=== PATIENT | female | born 2000 | race African-American/Black ===

== ENCOUNTER 2025-02-10 15:15 | Emergency (ER) | payer SELFPAY ==
--- NOTE | 2025-02-10 15:15 | RT.EKG_ITS ---
APPROVED REPORT Exam: Resting ECG Reason for Exam: chest pain Patient Location: E HR:72 bpm ECG Measurements Heart Rate 72 AXIS LA 183 P 35 QRSd 75 QRS 56 QT 370 T 19 QTc 407 Conclusion Sinus rhythm...normal P axis, V-rate 60- 99 No Occlusion OK
--- NOTE | 2025-02-10 15:16 | W.ED.GENAD ---
Discharge Plan Disposition Patient Disposition: Home Discharge Details Clinical Impression: Chest pain, unspecified, Microcytic anemia Primary Care Provider: Veronica,Local ED Provider: Raymundo Fried Home Meds and New Rx's Prescriptions: No Action No Known Home Meds Discharge Instructions Additional Instructions: You were seen in the emergency department for your chest pain. Your blood work shows no sign of any damage to your heart. The preliminary read of your chest x-ray in the emergency department showed no dangerous processes. You will receive a callback if there is an over read by radiology. Please return to the emergency department if you develop shortness of breath or any worsening chest pain. Otherwise please follow-up with your primary care provider when you return home. You are found to be mildly anemic. Your hemoglobin is 10.3 g/dL. Your mean corpuscular volume is 71. For your pain please take medications as follows: 1. Take acetaminophen (Tylenol), 1,000 mg (two 500 mg tabs) every 6 hours Stand Alone Forms: Portal Information Discharge Data Discharge Date/Time-TO BE ENTERED AT DEPARTURE: 02/10/25 16:50 HPI General Date/Time Provider Initiated Documentation: 02/10/25 15:16. HPI Narrative: MDM This is an overall quite well-appearing normothermic and not tachycardic 24-year-old female with chest pain and reassuring ECG for which patient will undergo troponin testing to assess for ACS. I considered aortic dissection however patient has had no tearing quality to suggest aortic dissection. No nausea nor vomiting to suggest increased risk for esophageal rupture. No abdominal pain to suggest acute cholecystitis however will obtain LFTs. Will obtain lipase to assess for pancreatitis. No trauma to chest to suggest increased risk for pneumothorax. Patient not hypotensive nor tachycardic make my suspicion low for cardiac tamponade. No reported rash to chest to suggest zoster. No cough no shortness of breath to suggest pneumonia. Patient was not complaining of shortness of breath and is not tachycardic. She is PERC negative and as result I did not obtain a dimer. HEART SCORE Chest pain Diagnostic Protocol: [-History/Physical/Gestalt: Slightly Suspicious (0)] [-EKG: Normal and/or unchanged from prior EKG (0)] [-AGE: less than 45 (0)] [- RISK FACTORS: 1 - 2 risk factors (+1)] [-TROPONIN: <= normal limit (0)] - TOTAL SCORE: 1 - Risk Factors: DM, current or recent smoker, HTN, HLD, family hx of CAD, obesity - INTERPRETATION: With a total score of 3 or less, risk of major cardiac event within six weeks 1.7%, likely lower with two negative troponins. [I explained to the patient that the risk of subsequent major cardiac event within 1 month is not 0, however risk predicted to be less than 2%. Patient verbalized understanding, accepts this risk and shared and the decision for discharge with PCP follow-up for further evaluation and management. They understand to return to the ED immediately with any worsening symptoms, new symptoms or other concerns.] 4:30 PM Troponin is undetectable and initial given duration of time since symptoms began patient does not requires a repeat troponin. Reassuring normal lipase. CBC with microcytic anemia. No thrombocytopenia. No leukocytosis. Negative hCG. Comprehensive metabolic panel with normal renal function. No acute LFT abnormalities. No acute electrolyte abnormalities. No prior for comparison. Patient I discussed her anemia. She is not currently on her menstrual period. We discussed that when she returns home she should follow-up with her primary care provider. 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 We also discussed that she should return to the ED if her chest pain worsens or change. She understood her return indications and was discharged with empiric trial of expectant outpatient management. Diagnostic interpretations performed by me: Per my independent interpretation chest x-ray shows: No acute cardiopulmonary process Per my independent interpretation EKG shows: Narrow complex normal sinus rhythm at a rate of 72. Normal axis. Intervals within normal limits. No ST segment abnormalities. No T wave versions. No prior for comparison. No acute injury pattern. HPI This is a patient with a history of asthma presenting with chest pain. The patient reports experiencing intermittent chest pain for over a week, which has become constant over the past 3 to 4 days. The pain is localized to the upper chest and occasionally radiates to another area. The pain is described as constant and worsens with physical activity, such as moving around at work. The patient has not identified any alleviating factors. There is no associated shortness of breath, vomiting, abdominal pain, recent falls, or trauma. The patient has no history of diabetes, hypertension, hypercholesterolemia, syncope, or thromboembolic events. She is not on any form of contraception and reports no unusual rashes. She has attempted to use her asthma inhaler and breathing treatments to alleviate the pain, but these have been ineffective. The patient has no prior history of similar chest pain. 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 She also reports that her older sister has been missing for several months. She reports that this is a source of stress. Exam General: Well-appearing in no acute distress speaking in complete sentences. Head: Normocephalic, atraumatic. Eye: Extraocular eye movements intact. No conjunctival injection. No scleral icterus. Ear, nose, mouth, throat: Grossly normal inspection. Normal voice, handling secretions normally. Neck: Trachea midline. Cardiovascular: Well-perfused distal extremities. Regular rate and rhythm Respiratory: Nonlabored respiration. Clear lungs bilaterally. Gastrointestinal: Nondistended abdomen. Soft. Nontender. Musculoskeletal: No edema. Moving all 4 extremities spontaneously. Skin: Normal for age and race, grossly normal temperature and turgor. No acute rash. Neurologic: Alert and appropriate, no apparent acute deficits. Psychiatric: Mood and manner are appropriate. Grooming and personal hygiene are appropriate. Related Data Home Medications ?Medication ?Instructions ?Recorded ?Confirmed Unknown [No Known Home Meds] 02/10/25 02/10/25 Allergies Allergy/AdvReac Type Severity Reaction Status Date / Time Penicillins Allergy Intermediate rash Verified 02/10/25 15:22 [facility] All Active Problems (Updated 02/10/25 @ 16:39 by Raymundo Fried MD) Microcytic anemia (Acute) Chest pain, unspecified (Acute) Social History Smoking risk assessment performed?: No Do you feel safe at home: Yes Do you feel safe in your relationship?: Yes
[2025-02-10 15:18] VITALS: BP 127/76; PULSE 79; RESP 16; TEMP 36.8; O2SAT 98
--- NOTE | 2025-02-10 15:30 | DI.RAD_ITS ---
Exam(s) XR CHEST 2V PA LATERAL EXAM: XR CHEST 2V PA LATERAL CLINICAL HISTORY: Chest pain. TECHNIQUE: 2D digital imaging was performed. COMPARISON: No exams were available for comparison FINDINGS: 2 views: Heart size is normal. The mediastinum is not widened. Lungs are clear. No infiltrates nor pleural effusions. IMPRESSION: No acute pulmonary findings. DATA REPOSITORY: RADIATION DOSE DELIVERED:
[2025-02-10 15:46] VITALS: RESP 12
[2025-02-10 16:03] LABS: Abs Immature Grans 0.02 10^3/uL (0.0-0.06); HCT 32.2 % (36.0-46.0); HGB 10.3 g/dL (11.2-15.7); Immature Grans % 0.3 %; MCH 22.7 pg (27.0-33.0); MCHC 32.0 % (32.0-36.0); MCV 71 fL (80-95); MPV 10.3 fL (8.0-11.0); Platelet Count 366 10^3/uL (130-400); RBC 4.54 10^6/uL (3.93-5.22); RDW 15.7 % (11.7-14.6); RDW-SD 39.5 fL; WBC 6.16 10^3/uL (4.4-10.8)
[2025-02-10 16:10] LABS: Lipase 22 U/L (<53)
[2025-02-10 16:12] LABS: ALT 8 U/L (10-49); AST 18 U/L (<34); Albumin 4.3 g/dL (3.2-5.0); Alkaline Phosphatase 74 U/L (46-116); Anion Gap 6.6 mmol/L (3-11); BUN 11 mg/dL (9-23); Bilirubin, Total 0.40 mg/dL (0.2-1.2); CO2 28.4 mmol/L (20.0-31.0); Calcium 8.8 mg/dL (8.3-10.6); Chloride 106 mmol/L (98-107); Glucose 79 mg/dL (74-106); Potassium 3.6 mmol/L (3.5-5.1); Sodium 141 mmol/L (136-145); Total Protein 7.5 g/dL (5.7-8.2)
[2025-02-10 16:13] LABS: HCG Qual (Serum) Negative
[2025-02-10 16:16] LABS: Troponin I < 3 ng/L (<35)
[2025-02-10 16:32] LABS: Microcytosis 2+
[2025-02-10 16:47] VITALS: BP 112/75; PULSE 69; O2SAT 99
--- NOTE | 2025-02-10 16:48 | DI.VRAD_ITS ---
PROCEDURE INFORMATION: Exam: XR Chest Exam date and time: 02/10/2025 4:15 PM Age: 24 years old Clinical indication: Other: Chest pain TECHNIQUE: Imaging protocol: Radiologic exam of the chest. Views: 2 views. COMPARISON: No relevant prior studies available. FINDINGS: Lungs: Unremarkable. No consolidation. Pleural spaces: Unremarkable. No pleural effusion. No pneumothorax. Heart/Mediastinum: Unremarkable. No cardiomegaly. Bones/joints: Unremarkable. IMPRESSION: No evidence for acute abnormality in the chest. Dictated and Authenticated by: Daisy Cam MD. Orderin Fariha Fonseca MD
== END 2025-02-10 16:50 | disposition home or self-care (01) ==
LOC: ER 16:41
PROVIDERS: Emergency Provider Emergency Medicine
DX: R07.9 Chest pain, unspecified (principal); D53.9 Nutritional anemia, unspecified
CPT/HCPCS: 36415; 80053; 83690; 93005; 99285; 71046; 84484; 84703; 85025; 93010; 99283